=== PATIENT | male | born 1985 | race Caucasian/White ===

== ENCOUNTER 2023-08-20 12:02 | Emergency (ER) | payer BC, SELFPAY ==
[2023-08-20 12:10] VITALS: BP 142/94
[2023-08-20] MEDS: ADACEL 0.5 ML IM (12:50)
--- NOTE | 2023-08-20 13:46 | ED.GENMED ---
History of Present Illness
General
Chief Complaint: Skin Problem
Source: patient
Exam Limitations: none
Time Seen by Provider: 08/20/23 12:29
Nursing documentation reviewed up to this point in time: agreed with
Travel History
Have you had any contact with someone who has COVID-19?: No
Do you have any symptoms of coronavirus? Fever > 100 degrees, chills, cough, shortness of breath, sore throat, loss of taste or smell, muscle aches, or headache?: No
History of Present Illness
History of Present Illness:
Patient is a 38-year-old male who cut himself with a brand-new clean razor blade to his right wrist. He is unsure of his last tetanus. He denies any pain numbness tingling. He is right-hand dominant.
Review of Systems
Review of Systems
Allergies reviewed?: Yes
All Other Systems: ROS reviewed and negative except as documented in HPI and ROS
Constitutional: Reports no symptoms
Musculoskeletal: Reports other (right wrist laceration )
Skin: Reports other (see above )
Neurological: Reports no symptoms
Psychiatric: Reports no symptoms
Phy Exam
General Physical Exam
General Presentation: no apparent distress
General age: appears stated age
General Skin: warm and dry
General Habitus: normal
General Mental: alert
General Hydration: appears well hydrated
Neurological Exam
Neurological Exam: alert and oriented x3
[place] Coma Scale
Eye Opening: Spontaneous
Verbal Response: Oriented
Motor Response: Obeys Commands
GCS Total Score: 15
Musculoskeletal Exam
Musculoskeletal Exam: other (RUE with strong pulses : Positive full-thickness laceration to volar aspect of right wrist through to subcutaneous tissue only approximate 3 cm full range of motion to wrist full range of motion to fingers normal cap
refill normal sensation)
Skin Exam
Skin Exam: normal color and warm/dry
Psychiatric Exam
Psychiatric Exam: normal mood/affect
Course
Orders/Labs/Results
Orders:
Orders
08/20/23 12:30
Tetanus/Diphth/Acelpertussis [Adacel] 0.5 ml IM .ONCE ONE
Vital Signs
Initial and Last Documented VS:
Initial Vital Signs
Temp Pulse Resp BP Pulse Ox
98.5 F 85 18 142/94 95
08/20/23 12:10 08/20/23 12:10 08/20/23 12:10 08/20/23 12:10 08/20/23 12:10
Last Documented Vital Signs
Temp Pulse Resp BP Pulse Ox
98.5 F 85 18 142/94 95
08/20/23 12:10 08/20/23 12:10 08/20/23 12:10 08/20/23 12:10 08/20/23 12:10
Procedures
Laceration Closure
Right Volar Wrist:
Status of Wound: clean
Size of Wound in cm: 3
Description of Wound Edges: sharp
Preparation: cleaned with saline
Anesthesia: 1% Lidocaine with epi
Revision/Debridement: routine- no revision
Wound exploration: explored to base- no FB
Type of Closure: single layer closure
Skin Closure Material: 4-0 nylon
Number of sutures: 6
MDM/Problems Addressed
Differential Diagnosis Includes:
Not limited to laceration
MDM/Problems Addressed:
Patient with clean laceration to the volar aspect of the right wrist that was sutured as documented. No tendon deficit no tendon visible wound through to subcutaneous tissue only wound repaired as documented. Patient tolerated procedure well.
Tetanus updated. Wound care reviewed. will hold off on antibx clean razor blader not used and clean wound.
*Pulse Oximetry
Patient hypoxic: no
*Critical Care Note
Total Time (30-74mins, 75-104mins- exclusive of procedures): Not Applicable
ED Attending Note
-
Portions of this chart may have been created with voice recognition software.� Occasional wrong word or��sound alike� substitutions may have occurred due to the inherent limitations of voice recognition software.
Discharge Plan
Departure
Patient Disposition: Home (Routine Discharge)
Date of Disposition: 08/20/23
Time of Disposition: 13:46
Patient with high blood pressure during this ER visit?: Yes
Condition: Fair
Covid-19: Not Applicable
Discharge Problem:
Laceration of wrist
Instructions: Wound Care (DC), Laceration Repair With Stitches (DC), BLOOD PRESSURE
Referrals:
Elier Urbina MD [Family Provider] -
Activity Restrictions/Additional Instructions:
Keep wound clean and dry for 24 hours after 24 hours wash with soap and water twice a day apply small layer of antibiotic ointment to the area. See family doctor in the next 2 to 3 days for wound check as needed and sutures are to be removed in the
next 10 to 12 days. Return if any signs infection increased pain swelling redness drainage red streaking fever chills.
Interventions
Interventions:
*Risk Screen - Suicide Last Done: 08/20/23 12:10
*General Assessment Last Done: 08/20/23 12:10
*Neglect/Abuse Screening Last Done: 08/20/23 12:10
*ED COVID-19 Vaccine History Last Done: 08/20/23 12:22
ED-Skin Assessment Last Done: 08/20/23 12:23
Discharge Date and Time
Print Language: TUVAL[place]
== END 2023-08-20 13:59 | disposition home or self-care (01) ==
LOC: EMR 12:02
PROVIDERS: EMERGENCY PHYSICIAN Emergency Medicine; FAMILY PHYSICIAN Internal Medicine
DX: S61.511A Laceration without foreign body of right wrist, initial encounter (principal); W26.9XXA Contact with unspecified sharp object(s), initial encounter; Z23 Encounter for immunization; R03.0 Elevated blood-pressure reading, without diagnosis of hypertension
CPT/HCPCS: 99284; 12002; 90471; 90715